=== PATIENT | female | born 2000 | race African-American/Black ===

== ENCOUNTER 2019-03-26 14:24 | Inpatient (IN) ==
[2019-03-26 15:07] LABS: Apearance,Urine CLEAR (Clear); Bacteria,Urine Occasional /HPF (Few); Bilirubin,Urine Negative (Negative); Blood, Urine Negative (Negative); Glucose,Urine (UA) Negative (Negative); Ketones,Urine Negative (Negative); Mucus,Urine Few /LPF (Occasional); Nitrite,Urine Negative (Negative); Protein,Urine Negative; RBC,Urine <1 /HPF (0-4); Squamous Epithelial Cell,Urine Occasional /HPF (0-10); Urine Color Yellow (Yellow); Urine Specific Gravity 1.023 (1.001-1.035); WBC,Urine 4 /HPF (0-6)
[2019-03-26] MEDS ORDERED: LACTATED RINGERS 1,000 ML IV ONE (16:48)
[2019-03-26] MEDS: LACTATED RINGERS 1,000 ML IV SCH (16:58)
[2019-03-26] MEDS ORDERED: ACETAMINOPHEN 325 MG TABLET PO PRN (19:30)
[2019-03-27] MEDS: LACTATED RINGERS 1,000 ML IV SCH ×2 (04:25→08:56)
[2019-03-27] MEDS ORDERED: MEPERIDINE 50 MG/1 ML VIAL IV PRN (08:34)
[2019-03-27] MEDS ORDERED: BUTORPHANOL 2 MG/ML VIAL IV PRN (08:34)
[2019-03-27] MEDS ORDERED: ONDANSETRON 4 MG/2 ML VIAL IV PRN ×2 (08:34→14:15)
[2019-03-27] MEDS ORDERED: OXYTOCIN/LR 20 UNIT/1,000 ML BAG IV ONE ×3 (08:51→14:15)
[2019-03-27 08:57] LABS: Basophils % 0.3 % (0.0-0.8); Eosinophils # 0.1 10*3/uL (0.0-0.87); Eosinophils % 1.6 % (0.00-10.9); Hemoglobin 10.8 GM/DL (12.0-16.0); Immature Granulocytes % 0.5 %; Immature Granulocytes Absolute 0.03 #; Lymphocytes # 2.1 10*3/uL (1.4-4.0); Lymphocytes % 35.4 % (21.3-54.2); Mean Corpuscular HGB Conc 31.8 GM/DL (32-36); Mean Platelet Volume 10.1 FL (9.6-12.0); Monocytes % 7.9 % (1.7-12.7); Neutrophils % 54.3 % (38.7-73.9); Platelet Count 180 T/CUMM (130-400); Red Blood Count 4.05 MC/CUMM (3.8-5.5); Red Cell Distribution Width 13.8 % (9.3-17.3); White Blood Count 5.8 T/CUMM (4-12)
[2019-03-27] MEDS ORDERED: OXYTOCIN/LR 20 UNIT/1,000 ML BAG IV SCH (09:00)
[2019-03-27] MEDS ORDERED: LACTATED RINGERS 1,000 ML IV SCH (09:00)
[2019-03-27 09:16] LABS: Alanine Aminotransferase 15 U/L (13-56); Albumin 2.8 G/DL (3.4-5.0); Alkaline Phosphatase 142 U/L (45-117); Aspartate Amino Transferase 15 U/L (0-37); Bilirubin,Total < 0.39 MG/DL (0.2-1.0); Blood Urea Nitrogen 9 MG/DL (7-18); Calcium 8.5 MG/DL (8.5-10.1); Estimated Glom Filtration Rate 187 ML/MIN; Glucose 67 MG/DL (74-106); Osmolality,Calculated 271.7 MOS/KG (273-304); Total Protein 7.6 G/DL (6.4-8.3)
[2019-03-27 09:18] LABS: Hypochromasia 1+; Lymphocytes 34 % (20-55); Platelet Estimate Adequate; Segmented Neutrophils 58 % (50-85); Total Cells Counted 100
[2019-03-27] MEDS ORDERED: LACTATED RINGERS 1,000 ML IV ONE (10:26)
[2019-03-27] MEDS ORDERED: CITRIC ACID/SODIUM CITRATE 30 ML UDCUP PO ONE (10:26)
[2019-03-27] MEDS ORDERED: FAMOTIDINE 20 MG/2 ML VIAL IV ONE (10:26)
[2019-03-27] MEDS ORDERED: hydrOXYzine HCL 25 MG/1 ML VIAL IM PRN (10:27)
[2019-03-27] MEDS ORDERED: NALOXONE 0.4 MG/ML VIAL IV PRN (10:27)
[2019-03-27] MEDS ORDERED: ePHEDrine 50 MG/ML AMP IV PRN (10:27)
[2019-03-27] MEDS ORDERED: PROMETHAZINE 25 MG/1 ML VIAL IM ONE (10:27)
[2019-03-27] MEDS ORDERED: diphenhydrAMINE 50 MG/1 ML VIAL IV PRN ×2 (10:27)
[2019-03-27] MEDS ORDERED: fentaNYL 2 MCG/ROPIV 0.2% EPID 100 ML EPIDURAL SCH (10:30)
[2019-03-27] MEDS ORDERED: ROPIVACAINE 0.5% 30 ML VIAL ONE (11:54)
[2019-03-27 12:07] LABS: Apearance,Urine CLEAR (Clear); Bilirubin,Urine Negative (Negative); Blood, Urine Negative (Negative); Glucose,Urine (UA) Negative (Negative); Ketones,Urine Negative (Negative); Mucus,Urine Occasional /LPF (Occasional); Nitrite,Urine Negative (Negative); Protein,Urine Negative; RBC,Urine 1 /HPF (0-4); Squamous Epithelial Cell,Urine Occasional /HPF (0-10); Urine Color Yellow (Yellow); Urine Specific Gravity 1.015 (1.001-1.035); Urine Urobilinogen < 2.0 EU/DL (0.2-1.0); WBC,Urine <1 /HPF (0-6)
[2019-03-27] MEDS ORDERED: METHYLERGONOVINE 0.2 MG/1 ML AMP ONE (13:34)
[2019-03-27] MEDS ORDERED: CARBOPROST TROMETHAMINE 250 MCG/ML AMP IM ONE (13:34)
[2019-03-27] MEDS ORDERED: miSOPROStoL 200 MCG TABLET ONE (13:34)
[2019-03-27] MEDS ORDERED: TRANEXAMIC ACID 1,000 MG/10 ML VIAL ONE (13:34)
[2019-03-27] MEDS ORDERED: oxyCODONE/ACETAMINOPHEN 5-325 MG TABLET PO PRN (14:15)
[2019-03-27] MEDS ORDERED: WITCH HAZEL PADS 100/JAR TOP PRN (14:15)
[2019-03-27] MEDS ORDERED: BISACODYL 10 MG SUPP RECTAL PRN (14:15)
[2019-03-27] MEDS ORDERED: MEASLES/MUMPS/RUBELLA VACCINE 0.5 ML VIAL SUBCUT ONE (14:15)
[2019-03-27] MEDS ORDERED: RHO(D) IMMUNE GLOBULIN 300 MCG SYRINGE IM ONE (14:15)
[2019-03-27] MEDS ORDERED: DIPH/TET/ACEL PERT BOOSTER VACCINE 0.5 ML VIAL IM ONE (14:15)
[2019-03-27] MEDS ORDERED: ACETAMINOPHEN 325 MG TABLET PO PRN (14:15)
[2019-03-27] MEDS ORDERED: HYDROCORTISONE 2.5% RECTAL CREAM 30 GM TUBE TOP PRN (14:15)
[2019-03-27] MEDS ORDERED: BENZOCAINE 20%/MENTHOL 0.5% SPRAY 56 GM CAN TOP PRN (14:15)
[2019-03-27] MEDS ORDERED: LANOLIN 50% CREAM 0.3 OZ TUBE TOP PRN (14:15)
[2019-03-27] MEDS: IBUPROFEN 800 MG TABLET PO PRN (18:30)
[2019-03-27] MEDS: oxyCODONE/ACETAMINOPHEN 5-325 MG TABLET PO PRN (21:05)
[2019-03-27] MEDS: DOCUSATE SODIUM 100 MG CAPSULE PO SCH (21:05)
[2019-03-28] MEDS: oxyCODONE/ACETAMINOPHEN 5-325 MG TABLET PO PRN ×3 (05:36→23:02)
[2019-03-28 05:37] LABS: Basophils % 0.2 % (0.0-0.8); Eosinophils # 0.1 10*3/uL (0.0-0.87); Eosinophils % 1.1 % (0.00-10.9); Immature Granulocytes % 0.5 %; Immature Granulocytes Absolute 0.04 #; Lymphocytes # 2.4 10*3/uL (1.4-4.0); Lymphocytes % 26.5 % (21.3-54.2); Mean Corpuscular HGB Conc 31.5 GM/DL (32-36); Mean Corpuscular Volume 83.9 FL (87-102); Mean Platelet Volume 10.8 FL (9.6-12.0); Monocytes % 7.1 % (1.7-12.7); Neutrophils % 64.6 % (38.7-73.9); Platelet Count 164 T/CUMM (130-400); Red Cell Distribution Width 13.7 % (9.3-17.3)
[2019-03-28 05:40] LABS: Hemoglobin 8.5 GM/DL (12.0-16.0); Red Blood Count 3.22 MC/CUMM (3.8-5.5); White Blood Count 8.9 T/CUMM (4-12)
[2019-03-28] MEDS: DOCUSATE SODIUM 100 MG CAPSULE PO SCH ×2 (09:13→21:39)
[2019-03-28] MEDS: IBUPROFEN 800 MG TABLET PO PRN ×2 (10:55→18:02)
[2019-03-29] MEDS: IBUPROFEN 800 MG TABLET PO PRN (05:01)
[2019-03-29] MEDS: DOCUSATE SODIUM 100 MG CAPSULE PO SCH (09:16)
[2019-03-29 11:24] VITALS: BP 111/73
== END 2019-03-29 13:10 | disposition home or self-care (01) | DRG 807 ==
LOC: N.LDOUT 14:24 → N.LD 14:27 → N.OB 03-27 16:58
PROVIDERS: ADMIT Obstetrics & Gynecology; ATTEND Obstetrics & Gynecology